=== PATIENT | female | born 1995 | race African-American/Black ===

== ENCOUNTER 2016-09-07 17:42 | Emergency (ER) | payer OTHER ==
[~2016-09-07] VITALS: Ht 162.6 cm; Wt 85.4 kg
[~2016-09-07 17:42] MED LIST: ALBU18HF INH; NONE PER PT
[2016-09-07 18:00] VITALS: BP 145/84
[2016-09-07] MEDS ORDERED: IBUPROFEN 200 MG TABLET ONE (19:29)
[2016-09-07] MEDS ORDERED: IBUPROFEN 200 MG TABLET PO ONE (19:30)
[2016-09-07] MEDS ORDERED: TRAZ50TA18 PO (19:36)
== END 2016-09-07 19:55 | disposition home or self-care (01) ==
LOC: ED 19:35
DX: S60.222A Contusion of left hand, initial encounter (principal); X58.XXXA Exposure to other specified factors, initial encounter; Y93.89 Activity, other specified; Y92.89 Other specified places as the place of occurrence of the external cause; Y99.8 Other external cause status
CPT/HCPCS: 99284